=== PATIENT | female | born 1965 | race Caucasian/White ===

== ENCOUNTER 2017-07-24 11:09 | Inpatient (IN) | payer MEDICAID ==
[2017-07-24 12:10] LABS: ADD MAN DIFF? NO
[2017-07-24 12:22] LABS: WHITE BLOOD COUNT 6.8 10^3/ul (4.8-10.8)
[2017-07-24 12:22] LABS: BASOPHILS % 0.3 % (0.0-2.0); EOSINOPHILS # 0.3 10^3/ul (0.0-0.5); EOSINOPHILS % 3.8 % (0.0-7.0); HEMATOCRIT 33.9 % (37.0-47.0); HEMOGLOBIN 11.2 g/dl (12.0-16.0); LYMPHOCYTES # 2.1 10^3/ul (0.8-2.9); LYMPHOCYTES % 30.3 % (15.0-51.0); MEAN CORPUSCULAR HEMOGLOBIN 27.7 pg (29.0-33.0); MEAN CORPUSCULAR VOLUME 83.7 fl (82.0-101.0); MEAN PLATELET VOLUME 10.1 fl (7.4-10.4); MONOCYTE # 0.4 10^3/ul (0.3-0.9); MONOCYTES % 5.1 % (0.0-11.0); NEUTROPHIL # 4.1 10^3/ul (1.6-7.5); NEUTROPHILS % 60.2 % (39.0-77.0); PLATELET COUNT 301 10^3/UL (140-415); RED BLOOD COUNT 4.05 10^6/ul (4.20-5.40); RED CELL DISTRIBUTION WIDTH 12.7 % (11.5-14.5)
[2017-07-24 12:37] LABS: ALANINE AMINOTRANSFERASE 42 IU/L (13-69); ALBUMIN 3.7 g/dl (3.3-4.9); ALBUMIN/GLOBULIN RATIO 1.27; ALKALINE PHOSPHATASE 64 IU/L (42-121); ANION GAP 16 (8-16); ASPARTATE AMINO TRANSFERASE 22 IU/L (15-46); BILIRUBIN,INDIRECT 0.3 mg/dl (0-1.1); BILIRUBIN,TOTAL 0.3 mg/dl (0.2-1.3); BLOOD UREA NITROGEN 4 mg/dl (7-20); CALCIUM 9.1 mg/dl (8.4-10.2); CARBON DIOXIDE 23 mmol/L (21-31); CHLORIDE 103 mmol/L (97-110); CREATININE 0.38 mg/dl (0.44-1.00); GLUCOSE 111 mg/dl (70-220); POTASSIUM 4.1 mmol/L (3.5-5.1); SODIUM 138 mmol/L (135-144); TOTAL PROTEIN 6.6 g/dl (6.1-8.1)
[2017-07-24 12:38] LABS: LACTIC ACID 1.2 mmol/L (0.5-2.0)
[2017-07-24 12:41] LABS: INR 0.93; PROTIME 12.6 Sec (11.9-14.9)
[2017-07-24 12:42] LABS: PARTIAL THROMBOPLASTIN TIME 29.4 Sec (25.0-35.0)
[2017-07-24 12:48] LABS: TROPONIN-I < 0.012 ng/ml (0.00-0.12)
[2017-07-24 15:36] LABS: LACTIC ACID 0.7 mmol/L (0.5-2.0)
[2017-07-24] MEDS ORDERED: ONDANSETRON 4 MG TAB PO (17:30)
[2017-07-24] MEDS ORDERED: NAPROXEN 500 MG TAB PO (17:30)
[2017-07-24] MEDS ORDERED: ACETAMINOPHEN 325 MG TAB PO ×2 (17:30→18:30)
[2017-07-24] MEDS ORDERED: NITROGLYCERIN (SL) 0.4 MG TAB SL (17:30)
[2017-07-24] MEDS ORDERED: LACTULOSE 30ML CUP PO (17:30)
[2017-07-24] MEDS: OSELTAMIVIR 75 MG CAP PO (17:58)
[2017-07-24] MEDS: ALBUTEROL/IPRATROPIUM (NEB) 3 ML AMP HHN ×2 (18:04→20:00)
[2017-07-24] MEDS: ASPIRIN 81 MG TAB PO (18:05)
[2017-07-24] MEDS: OXYBUTYNIN 5 MG TAB PO (18:06)
[2017-07-24] MEDS: SOD CHLORIDE 0.45% 1,000 ML IV (18:08)
[2017-07-24] MEDS ORDERED: POLYETHYLENE GLYCOL 17 GM PACKET PO (18:30)
[2017-07-24] MEDS ORDERED: MAGNESIUM HYDROXIDE 30ML CUP PO (18:30)
[2017-07-24] MEDS ORDERED: NACL 0.9% 3 ML SYG IV (18:30)
[2017-07-24] MEDS ORDERED: DOCUSATE SODIUM 100 MG CAP PO (18:30)
[2017-07-24] MEDS: ENOXAPARIN 40 MG/0.4 ML SYG SC (18:30)
[2017-07-24] MEDS ORDERED: BISACODYL 10 MG SUPP PR (18:30)
[2017-07-24] MEDS ORDERED: ONDANSETRON 4 MG INJ IV (18:30)
[2017-07-24] MEDS ORDERED: ACETAMINOPHEN 650 MG SUPP PR (18:30)
[2017-07-24 19:07] LABS: LACTIC ACID 0.9 mmol/L (0.5-2.0)
[2017-07-24] MEDS: [UNRECOGNIZED DRUG - REMARK] XX (19:31)
[2017-07-24] MEDS: BACLOFEN 10 MG TAB PO (20:41)
[2017-07-24] MEDS: CALCIUM/VITAMIN D (500/200) TAB PO (20:42)
[2017-07-24] MEDS: MAGNESIUM OXIDE 400 MG TAB PO (20:42)
[2017-07-24] MEDS: LACTULOSE 30ML CUP PO (20:43)
[2017-07-24] MEDS ORDERED: BACLOFEN 10 MG TAB PO (21:00)
[2017-07-24] MEDS ORDERED: MAGNESIUM OXIDE 400 MG TAB PO (21:00)
[2017-07-24] MEDS ORDERED: CRANBERRY EXTRACT PO (21:00)
[2017-07-24] MEDS: AZITHROMYCIN 500MG/NS (PMX) 250 ML IVPB (21:04)
[2017-07-24] MEDS: PIPER-TAZO 3.375 GM IV (PMX) 50 ML IVPB (22:12)
[2017-07-25] MEDS: [UNRECOGNIZED DRUG - REMARK] XX ×2 (02:30→08:37)
[2017-07-25] MEDS: PIPER-TAZO 3.375 GM IV (PMX) 50 ML IVPB ×3 (05:33→21:34)
[2017-07-25] MEDS: PANTOPRAZOLE 40 MG INJ IV (05:33)
[2017-07-25] MEDS: ALBUTEROL/IPRATROPIUM (NEB) 3 ML AMP HHN ×4 (07:30→19:19)
[2017-07-25] MEDS: MIDODRINE 5 MG TAB PO (08:25)
[2017-07-25] MEDS: OSELTAMIVIR 75 MG CAP PO ×2 (08:26→20:22)
[2017-07-25] MEDS: OXYBUTYNIN 5 MG TAB PO (08:26)
[2017-07-25] MEDS: ASCORBIC ACID 250 MG TAB PO (08:26)
[2017-07-25] MEDS: BACLOFEN 10 MG TAB PO ×3 (08:26→20:22)
[2017-07-25] MEDS: MULTIVITAMINS THERAPEUTIC TAB PO (08:26)
[2017-07-25] MEDS: ASPIRIN (EC) 81 MG TAB PO (08:27)
[2017-07-25] MEDS: LACTULOSE 30ML CUP PO ×3 (08:27→21:42)
[2017-07-25] MEDS: MAGNESIUM OXIDE 400 MG TAB PO ×3 (08:27→20:22)
[2017-07-25] MEDS: CALCIUM/VITAMIN D (500/200) TAB PO ×2 (08:27→20:34)
[2017-07-25] MEDS: ENOXAPARIN 40 MG/0.4 ML SYG SC (08:37)
[2017-07-25] MEDS ORDERED: ASCORBIC ACID 250 MG TAB PO (09:00)
[2017-07-25] MEDS ORDERED: MULTIVITAMINS THERAPEUTIC TAB PO (09:00)
[2017-07-25] MEDS ORDERED: MIDODRINE 10 MG PO (09:00)
[2017-07-25] MEDS: BISACODYL (EC) 5 MG TAB PO (12:08)
[2017-07-25] MEDS: PAROXETINE 10 MG TAB PO (12:09)
[2017-07-25] MEDS: SOD CHLORIDE 0.45% 1,000 ML IV (13:32)
[2017-07-25] MEDS: AZITHROMYCIN 500MG/NS (PMX) 250 ML IVPB (20:06)
[2017-07-25] MEDS: POLYETHYLENE GLYCOL 17 GM PACKET PO (20:22)
[2017-07-26] MEDS: PANTOPRAZOLE 40 MG INJ IV (05:52)
[2017-07-26] MEDS: PIPER-TAZO 3.375 GM IV (PMX) 50 ML IVPB ×3 (05:52→21:00)
[2017-07-26] MEDS: ALBUTEROL/IPRATROPIUM (NEB) 3 ML AMP HHN ×4 (08:00→23:37)
[2017-07-26] MEDS: CALCIUM/VITAMIN D (500/200) TAB PO ×2 (09:00→21:01)
[2017-07-26] MEDS: LACTULOSE 30ML CUP PO ×2 (09:00→21:01)
[2017-07-26] MEDS: ASCORBIC ACID 250 MG TAB PO (10:13)
[2017-07-26] MEDS: OXYBUTYNIN 5 MG TAB PO (10:13)
[2017-07-26] MEDS: ASPIRIN (EC) 81 MG TAB PO (10:13)
[2017-07-26] MEDS: MAGNESIUM OXIDE 400 MG TAB PO ×3 (10:13→21:00)
[2017-07-26] MEDS: MIDODRINE 5 MG TAB PO (10:13)
[2017-07-26] MEDS: BACLOFEN 10 MG TAB PO ×3 (10:13→21:00)
[2017-07-26] MEDS: OSELTAMIVIR 75 MG CAP PO ×2 (10:14→21:00)
[2017-07-26] MEDS: PAROXETINE 10 MG TAB PO (10:14)
[2017-07-26] MEDS: MULTIVITAMINS THERAPEUTIC TAB PO (10:14)
[2017-07-26] MEDS: ENOXAPARIN 40 MG/0.4 ML SYG SC (10:18)
[2017-07-26] MEDS: SOD CHLORIDE 0.45% 1,000 ML IV (10:19)
[2017-07-26] MEDS: AZITHROMYCIN 500MG/NS (PMX) 250 ML IVPB (21:00)
[2017-07-27 05:15] LABS: ADD MAN DIFF? NO
[2017-07-27] MEDS: PANTOPRAZOLE 40 MG INJ IV (05:16)
[2017-07-27] MEDS: PIPER-TAZO 3.375 GM IV (PMX) 50 ML IVPB ×2 (05:16→13:56)
[2017-07-27] MEDS: SOD CHLORIDE 0.45% 1,000 ML IV ×2 (05:20→09:44)
[2017-07-27 05:23] LABS: WHITE BLOOD COUNT 6.3 10^3/ul (4.8-10.8)
[2017-07-27 05:23] LABS: BASOPHILS % 0.5 % (0.0-2.0); EOSINOPHILS # 0.7 10^3/ul (0.0-0.5); EOSINOPHILS % 10.3 % (0.0-7.0); HEMATOCRIT 32.3 % (37.0-47.0); HEMOGLOBIN 10.5 g/dl (12.0-16.0); LYMPHOCYTES # 1.9 10^3/ul (0.8-2.9); LYMPHOCYTES % 29.3 % (15.0-51.0); MEAN CORPUSCULAR HEMOGLOBIN 27.4 pg (29.0-33.0); MEAN CORPUSCULAR HGB CONC 32.5 g/dl (32.0-37.0); MEAN CORPUSCULAR VOLUME 84.3 fl (82.0-101.0); MEAN PLATELET VOLUME 9.4 fl (7.4-10.4); MONOCYTE # 0.6 10^3/ul (0.3-0.9); NEUTROPHIL # 3.2 10^3/ul (1.6-7.5); NEUTROPHILS % 50.6 % (39.0-77.0); PLATELET COUNT 377 10^3/UL (140-415); RED BLOOD COUNT 3.83 10^6/ul (4.20-5.40); RED CELL DISTRIBUTION WIDTH 13.2 % (11.5-14.5)
[2017-07-27 06:05] LABS: PHOSPHORUS 3.6 mg/dl (2.5-4.9)
[2017-07-27 06:07] LABS: ANION GAP 17 (8-16); BLOOD UREA NITROGEN 8 mg/dl (7-20); CALCIUM 8.9 mg/dl (8.4-10.2); CARBON DIOXIDE 24 mmol/L (21-31); CHLORIDE 106 mmol/L (97-110); CREATININE 0.48 mg/dl (0.44-1.00); GLUCOSE 86 mg/dl (70-220); SODIUM 143 mmol/L (135-144)
[2017-07-27] MEDS: CALCIUM/VITAMIN D (500/200) TAB PO ×2 (09:00→20:47)
[2017-07-27] MEDS: MAGNESIUM OXIDE 400 MG TAB PO ×3 (09:00→20:47)
[2017-07-27] MEDS: LACTULOSE 30ML CUP PO ×2 (09:00→20:42)
[2017-07-27] MEDS: BACLOFEN 10 MG TAB PO ×3 (09:17→20:47)
[2017-07-27] MEDS: ASPIRIN (EC) 81 MG TAB PO (09:17)
[2017-07-27] MEDS: MULTIVITAMINS THERAPEUTIC TAB PO (09:17)
[2017-07-27] MEDS: OSELTAMIVIR 75 MG CAP PO ×2 (09:17→20:47)
[2017-07-27] MEDS: PAROXETINE 10 MG TAB PO (09:17)
[2017-07-27] MEDS: OXYBUTYNIN 5 MG TAB PO (09:17)
[2017-07-27] MEDS: ASCORBIC ACID 250 MG TAB PO (09:17)
[2017-07-27] MEDS: MIDODRINE 5 MG TAB PO (09:18)
[2017-07-27] MEDS: ENOXAPARIN 40 MG/0.4 ML SYG SC (09:25)
[2017-07-27] MEDS: ALBUTEROL/IPRATROPIUM (NEB) 3 ML AMP HHN ×3 (09:36→20:59)
[2017-07-28] MEDS: PANTOPRAZOLE 40 MG INJ IV (05:29)
[2017-07-28] MEDS: ALBUTEROL/IPRATROPIUM (NEB) 3 ML AMP HHN ×3 (08:05→20:32)
[2017-07-28] MEDS: CALCIUM/VITAMIN D (500/200) TAB PO ×2 (09:00→21:00)
[2017-07-28] MEDS: MULTIVITAMINS THERAPEUTIC TAB PO (09:00)
[2017-07-28] MEDS: LACTULOSE 30ML CUP PO ×2 (09:00→21:15)
[2017-07-28] MEDS: BACLOFEN 10 MG TAB PO ×4 (09:09→21:15)
[2017-07-28] MEDS: ASCORBIC ACID 250 MG TAB PO ×2 (09:09→09:29)
[2017-07-28] MEDS: MIDODRINE 5 MG TAB PO ×2 (09:09→09:29)
[2017-07-28] MEDS: OSELTAMIVIR 75 MG CAP PO ×3 (09:10→21:16)
[2017-07-28] MEDS: ASPIRIN (EC) 81 MG TAB PO ×2 (09:10→09:29)
[2017-07-28] MEDS: PAROXETINE 10 MG TAB PO ×2 (09:10→09:29)
[2017-07-28] MEDS: OXYBUTYNIN 5 MG TAB PO ×2 (09:10→09:29)
[2017-07-28] MEDS: MAGNESIUM OXIDE 400 MG TAB PO ×4 (09:10→21:16)
[2017-07-28] MEDS: ENOXAPARIN 40 MG/0.4 ML SYG SC (09:11)
[2017-07-28] MEDS: SOD CHLORIDE 0.45% 1,000 ML IV (09:17)
[2017-07-29] MEDS: SOD CHLORIDE 0.45% 1,000 ML IV (05:48)
[2017-07-29] MEDS: PANTOPRAZOLE 40 MG INJ IV (05:48)
[2017-07-29] MEDS: ALBUTEROL/IPRATROPIUM (NEB) 3 ML AMP HHN (08:00)
[2017-07-29] MEDS: LACTULOSE 30ML CUP PO (09:00)
[2017-07-29] MEDS: OXYBUTYNIN 5 MG TAB PO (09:00)
[2017-07-29] MEDS: CALCIUM/VITAMIN D (500/200) TAB PO (09:00)
[2017-07-29] MEDS: MULTIVITAMINS THERAPEUTIC TAB PO (09:00)
[2017-07-29] MEDS: MAGNESIUM OXIDE 400 MG TAB PO (09:00)
[2017-07-29] MEDS: ENOXAPARIN 40 MG/0.4 ML SYG SC (09:22)
[2017-07-29] MEDS: ASCORBIC ACID 250 MG TAB PO (09:24)
[2017-07-29] MEDS: PAROXETINE 10 MG TAB PO (09:24)
[2017-07-29] MEDS: MIDODRINE 5 MG TAB PO (09:24)
[2017-07-29] MEDS: ASPIRIN (EC) 81 MG TAB PO (09:25)
[2017-07-29] MEDS: BACLOFEN 10 MG TAB PO (09:25)
== END 2017-07-29 12:30 | DRG 193 ==
LOC: E/R 11:09 → PP2 13:51
DX: J09.X1 Influenza due to identified novel influenza A virus with pneumonia (principal); G82.50 Quadriplegia, unspecified; Z99.11 Dependence on respirator [ventilator] status; Z93.0 Tracheostomy status; R06.89 Other abnormalities of breathing; Z93.1 Gastrostomy status; Z93.3 Colostomy status; E78.5 Hyperlipidemia, unspecified; G62.9 Polyneuropathy, unspecified; Z87.820 Personal history of traumatic brain injury; Z79.82 Long term (current) use of aspirin; D64.9 Anemia, unspecified
CPT/HCPCS: 36415; 71010; 71045; 80048; 80053; 83605; 83735; 84100; 84484; 85025; 85610; 85730; 87040; 87400; 93005; 94640; 94664; 99285-25; G0378

== ENCOUNTER 2017-12-24 14:37 | Inpatient (IN) | payer MEDICAID ==
[2017-12-24 16:13] LABS: ADD MAN DIFF? NO
[2017-12-24] MEDS: SODIUM CHLORIDE 0.9% 1L BAG IV* (16:14)
[2017-12-24 16:17] LABS: BASOPHILS % 0.3 % (0.0-2.0); EOSINOPHILS % 0.3 % (0.0-7.0); HEMATOCRIT 36.1 % (37.0-47.0); HEMOGLOBIN 11.9 g/dl (12.0-16.0); LYMPHOCYTES # 1.9 10^3/ul (0.8-2.9); MEAN CORPUSCULAR HEMOGLOBIN 27.5 pg (29.0-33.0); MEAN CORPUSCULAR VOLUME 83.4 fl (82.0-101.0); MEAN PLATELET VOLUME 10.6 fl (7.4-10.4); MONOCYTE # 0.7 10^3/ul (0.3-0.9); MONOCYTES % 5.7 % (0.0-11.0); NEUTROPHIL # 9.3 10^3/ul (1.6-7.5); NEUTROPHILS % 77.4 % (39.0-77.0); PLATELET COUNT 291 10^3/UL (140-415); RED BLOOD COUNT 4.33 10^6/ul (4.20-5.40); RED CELL DISTRIBUTION WIDTH 13.3 % (11.5-14.5)
[2017-12-24 16:34] LABS: LACTIC ACID 1.9 mmol/L (0.5-2.0)
[2017-12-24 16:37] LABS: INR 0.98; PROTIME 13.1 Sec (11.9-14.9)
[2017-12-24 16:38] LABS: ALANINE AMINOTRANSFERASE 42 IU/L (13-69); ALBUMIN 4.1 g/dl (3.3-4.9); ALKALINE PHOSPHATASE 90 IU/L (42-121); ANION GAP 17 (8-16); ASPARTATE AMINO TRANSFERASE 34 IU/L (15-46); BILIRUBIN,INDIRECT 0.5 mg/dl (0-1.1); BILIRUBIN,TOTAL 0.5 mg/dl (0.2-1.3); BLOOD UREA NITROGEN 6 mg/dl (7-20); CALCIUM 9.4 mg/dl (8.4-10.2); CARBON DIOXIDE 24 mmol/L (21-31); CHLORIDE 103 mmol/L (97-110); CREATININE 0.35 mg/dl (0.44-1.00); GLUCOSE 88 mg/dl (70-220); POTASSIUM 3.9 mmol/L (3.5-5.1); SODIUM 140 mmol/L (135-144); TOTAL PROTEIN 7.5 g/dl (6.1-8.1)
[2017-12-24 16:54] LABS: TROPONIN-I < 0.012 ng/ml (0.000-0.120)
[2017-12-24] MEDS: ACETAMINOPHEN 500 MG TAB PO (17:11)
[2017-12-24 17:33] LABS: ADD UMIC YES; UR ASCORBIC ACID NEGATIVE (NEGATIVE); UR BACTERIA FEW /HPF (NONE SEEN); UR BILIRUBIN (Dip) NEGATIVE (NEGATIVE); UR BLOOD (Dip) NEGATIVE (NEGATIVE); UR CLARITY SLIGHTLY CLOUDY (CLEAR); UR COLOR YELLOW (YELLOW); UR GLUCOSE (Dip) NEGATIVE (NEGATIVE); UR KETONES (Dip) NEGATIVE (NEGATIVE); UR LEUKOCYTE ESTERASE (Dip) 1+ Leu/ul (NEGATIVE); UR NITRITE (Dip) POSITIVE (NEGATIVE); UR RBC 0 /HPF (0-5); UR SPECIFIC GRAVITY (Dip) 1.002 (1.003-1.030); UR TOTAL PROTEIN (Dip) NEGATIVE (NEGATIVE); UR UROBILINOGEN (Dip) NEGATIVE (NEGATIVE); UR WBC 1 /HPF (0-5)
[2017-12-24] MEDS: CEFTRIAXONE 1 GM/50 ML (PMX) 50 ML IVPB (18:02)
[2017-12-24] MEDS: SOD CHLORIDE 0.9% 1,000 ML IV ×2 (18:19→22:22)
[2017-12-24] MEDS ORDERED: ACETAMINOPHEN 325 MG TAB PO ×2 (18:30→21:00)
[2017-12-24] MEDS ORDERED: ONDANSETRON 4 MG INJ IV ×2 (18:30→21:00)
[2017-12-24 19:29] LABS: LACTIC ACID 0.9 mmol/L (0.5-2.0)
[2017-12-24] MEDS: ALBUTEROL/IPRATROPIUM (NEB) 3 ML AMP HHN (22:28)
[2017-12-24 23:12] LABS: LACTIC ACID 0.9 mmol/L (0.5-2.0)
[2017-12-25] MEDS: ALBUTEROL/IPRATROPIUM (NEB) 3 ML AMP HHN ×7 (00:55→20:07)
[2017-12-25] MEDS: GUAIFENESIN/DM 5ML CUP PO ×3 (01:41→16:45)
[2017-12-25] MEDS: PANTOPRAZOLE (EC) 40 MG TAB PO (05:28)
[2017-12-25 06:12] LABS: WHITE BLOOD COUNT 13.3 10^3/ul (4.8-10.8)
[2017-12-25 06:12] LABS: HEMATOCRIT 30.5 % (37.0-47.0); MEAN CORPUSCULAR HEMOGLOBIN 27.9 pg (29.0-33.0); MEAN CORPUSCULAR HGB CONC 32.8 g/dl (32.0-37.0); MEAN CORPUSCULAR VOLUME 85.2 fl (82.0-101.0); MEAN PLATELET VOLUME 10.5 fl (7.4-10.4); PLATELET COUNT 234 10^3/UL (140-415); RED BLOOD COUNT 3.58 10^6/ul (4.20-5.40); RED CELL DISTRIBUTION WIDTH 13.2 % (11.5-14.5)
[2017-12-25 06:31] LABS: ANION GAP 15 (8-16); BLOOD UREA NITROGEN 3 mg/dl (7-20); CALCIUM 8.4 mg/dl (8.4-10.2); CARBON DIOXIDE 18 mmol/L (21-31); CHLORIDE 107 mmol/L (97-110); CREATININE 0.31 mg/dl (0.44-1.00); GLUCOSE 109 mg/dl (70-220); POTASSIUM 4.1 mmol/L (3.5-5.1); SODIUM 136 mmol/L (135-144)
[2017-12-25 07:01] LABS: ADD MAN DIFF? YES; POSITIVE DIFF @See below
[2017-12-25 08:51] LABS: ANISOCYTOSIS 1+ (0-0); BAND NEUTROPHILS #M 3.8 10^3/ul (0.0-0.6); BAND NEUTROPHILS % (M) 29 % (0-4); LYMPHOCYTES #M 2.3 10^3/ul (0.8-2.9); LYMPHOCYTES % (M) 18 % (15-51); MICROCYTOSIS 1+ (0-0); MONOCYTE #M 0.5 10^3/ul (0.3-0.9); MONOCYTES % (M) 4 % (0-11); PLATELET ESTIMATE NORMAL; SEGMENTED NEUTROPHILS (M) % 49 % (39-77); SMUDGE%M 3 % (0-0)
[2017-12-25] MEDS: SOD CHLORIDE 0.9% 1,000 ML IV (13:30)
[2017-12-25] MEDS: PAROXETINE 10 MG TAB PO (16:00)
[2017-12-25] MEDS: LACTULOSE 30ML CUP PO (16:00)
[2017-12-25] MEDS ORDERED: NAPROXEN 500 MG TAB PO (16:00)
[2017-12-25] MEDS ORDERED: ACETAMINOPHEN 325 MG TAB PO (16:00)
[2017-12-25] MEDS: BISACODYL 10 MG SUPP PR (16:00)
[2017-12-25] MEDS ORDERED: ONDANSETRON 4 MG TAB PO (16:00)
[2017-12-25] MEDS ORDERED: AZITHROMYCIN 500 MG in SOD CHLORIDE 0.9% 250 ML IVPB (16:00)
[2017-12-25] MEDS: MAGNESIUM HYDROXIDE 30ML CUP PO (16:00)
[2017-12-25] MEDS ORDERED: NITROGLYCERIN (SL) 0.4 MG TAB SL (16:00)
[2017-12-25] MEDS: BISACODYL (EC) 5 MG TAB PO (16:00)
[2017-12-25] MEDS ORDERED: ACETAMINOPHEN 500 MG TAB PO (16:00)
[2017-12-25] MEDS: OXYBUTYNIN 5 MG TAB PO (16:00)
[2017-12-25] MEDS: METHYLPREDNISOLONE 125 MG INJ IV (16:37)
[2017-12-25] MEDS: MULTIVITAMINS THERAPEUTIC TAB PO (16:38)
[2017-12-25] MEDS: ASPIRIN (EC) 81 MG TAB PO (16:38)
[2017-12-25] MEDS: MIDODRINE 5 MG TAB PO (16:39)
[2017-12-25] MEDS: CHOLECALCIFEROL 1,000 UNIT TAB PO (16:39)
[2017-12-25] MEDS: ENOXAPARIN 40 MG/0.4 ML SYG SC (16:43)
[2017-12-25] MEDS: AZITHROMYCIN 500 MG in SOD CHLORIDE 0.9% 250 ML IVPB (17:44)
[2017-12-25] MEDS: ASCORBIC ACID 250 MG TAB PO (18:41)
[2017-12-25] MEDS: CEFTRIAXONE 1 GM/50 ML (PMX) 50 ML IVPB (18:42)
[2017-12-25] MEDS: OCULAR LUBRICANT 3.5 GM OPH OINT BOTH EYES (21:00)
[2017-12-25] MEDS: MAGNESIUM OXIDE 400 MG TAB PO (21:21)
[2017-12-25] MEDS: METHYLPREDNISOLONE 40 MG INJ IV (21:21)
[2017-12-25] MEDS: BACLOFEN 10 MG TAB PO (21:22)
[2017-12-25] MEDS: CALCIUM/VITAMIN D (250/125) TAB PO (21:22)
[2017-12-26] MEDS: ALBUTEROL/IPRATROPIUM (NEB) 3 ML AMP HHN ×6 (00:29→21:00)
[2017-12-26] MEDS: SOD CHLORIDE 0.9% 1,000 ML IV ×3 (01:36→19:37)
[2017-12-26] MEDS: PANTOPRAZOLE (EC) 40 MG TAB PO (05:42)
[2017-12-26] MEDS: METHYLPREDNISOLONE 40 MG INJ IV ×3 (05:43→21:22)
[2017-12-26 06:08] LABS: ADD MAN DIFF? NO
[2017-12-26 06:10] LABS: BASOPHILS % 0.1 % (0.0-2.0); HEMATOCRIT 32.1 % (37.0-47.0); HEMOGLOBIN 10.6 g/dl (12.0-16.0); LYMPHOCYTES # 1.7 10^3/ul (0.8-2.9); LYMPHOCYTES % 19.1 % (15.0-51.0); MEAN CORPUSCULAR HEMOGLOBIN 27.5 pg (29.0-33.0); MEAN CORPUSCULAR VOLUME 83.4 fl (82.0-101.0); MEAN PLATELET VOLUME 10.5 fl (7.4-10.4); MONOCYTE # 0.1 10^3/ul (0.3-0.9); MONOCYTES % 0.9 % (0.0-11.0); NEUTROPHILS % 79.2 % (39.0-77.0); PLATELET COUNT 263 10^3/UL (140-415); RED BLOOD COUNT 3.85 10^6/ul (4.20-5.40); RED CELL DISTRIBUTION WIDTH 13.6 % (11.5-14.5)
[2017-12-26 06:10] LABS: WHITE BLOOD COUNT 8.9 10^3/ul (4.8-10.8)
[2017-12-26 06:44] LABS: BLOOD UREA NITROGEN 5 mg/dl (7-20); CALCIUM 8.7 mg/dl (8.4-10.2); CARBON DIOXIDE 22 mmol/L (21-31); CHLORIDE 112 mmol/L (97-110); CREATININE 0.31 mg/dl (0.44-1.00); GLUCOSE 158 mg/dl (70-220); POTASSIUM 3.5 mmol/L (3.5-5.1)
[2017-12-26 07:07] LABS: ANION GAP 15 (8-16); SODIUM 145 mmol/L (135-144)
[2017-12-26] MEDS: LACTULOSE 30ML CUP PO ×2 (09:00→19:32)
[2017-12-26] MEDS: BISACODYL 10 MG SUPP PR (09:00)
[2017-12-26] MEDS: MAGNESIUM HYDROXIDE 30ML CUP PO (09:00)
[2017-12-26] MEDS: CALCIUM/VITAMIN D (250/125) TAB PO ×2 (09:00→21:20)
[2017-12-26] MEDS: ASCORBIC ACID 250 MG TAB PO (09:09)
[2017-12-26] MEDS: OXYBUTYNIN 5 MG TAB PO (09:09)
[2017-12-26] MEDS: ASPIRIN (EC) 81 MG TAB PO (09:10)
[2017-12-26] MEDS: MULTIVITAMINS THERAPEUTIC TAB PO (09:10)
[2017-12-26] MEDS: PAROXETINE 10 MG TAB PO (09:10)
[2017-12-26] MEDS: BACLOFEN 10 MG TAB PO ×3 (09:10→21:20)
[2017-12-26] MEDS: MAGNESIUM OXIDE 400 MG TAB PO ×3 (09:10→21:20)
[2017-12-26] MEDS: CHOLECALCIFEROL 1,000 UNIT TAB PO (09:11)
[2017-12-26] MEDS: MIDODRINE 5 MG TAB PO (09:13)
[2017-12-26] MEDS: BISACODYL (EC) 5 MG TAB PO (09:15)
[2017-12-26] MEDS: ENOXAPARIN 40 MG/0.4 ML SYG SC (11:01)
[2017-12-26] MEDS: CEFTRIAXONE 1 GM/50 ML (PMX) 50 ML IVPB (17:00)
[2017-12-26] MEDS: POLYETHYLENE GLYCOL 17 GM PACKET GTB (17:00)
[2017-12-26] MEDS: AZITHROMYCIN 500 MG in SOD CHLORIDE 0.9% 250 ML IVPB (18:42)
[2017-12-26] MEDS: OCULAR LUBRICANT 3.5 GM OPH OINT BOTH EYES (21:00)
[2017-12-27] MEDS: ALBUTEROL/IPRATROPIUM (NEB) 3 ML AMP HHN ×6 (00:23→20:20)
[2017-12-27] MEDS: SOD CHLORIDE 0.9% 1,000 ML IV (05:38)
[2017-12-27] MEDS: PANTOPRAZOLE (EC) 40 MG TAB PO (05:38)
[2017-12-27] MEDS: METHYLPREDNISOLONE 40 MG INJ IV ×2 (05:38→20:50)
[2017-12-27 06:06] LABS: ADD MAN DIFF? NO
[2017-12-27 06:15] LABS: WHITE BLOOD COUNT 10.7 10^3/ul (4.8-10.8)
[2017-12-27 06:15] LABS: BASOPHILS % 0.1 % (0.0-2.0); HEMATOCRIT 30.7 % (37.0-47.0); HEMOGLOBIN 10.3 g/dl (12.0-16.0); LYMPHOCYTES # 1.6 10^3/ul (0.8-2.9); LYMPHOCYTES % 14.5 % (15.0-51.0); MEAN CORPUSCULAR HEMOGLOBIN 27.9 pg (29.0-33.0); MEAN CORPUSCULAR HGB CONC 33.6 g/dl (32.0-37.0); MEAN CORPUSCULAR VOLUME 83.2 fl (82.0-101.0); MEAN PLATELET VOLUME 10.4 fl (7.4-10.4); MONOCYTE # 0.4 10^3/ul (0.3-0.9); MONOCYTES % 4.1 % (0.0-11.0); NEUTROPHIL # 8.6 10^3/ul (1.6-7.5); NEUTROPHILS % 80.3 % (39.0-77.0); PLATELET COUNT 310 10^3/UL (140-415); RED BLOOD COUNT 3.69 10^6/ul (4.20-5.40); RED CELL DISTRIBUTION WIDTH 13.4 % (11.5-14.5)
[2017-12-27 06:54] LABS: ALANINE AMINOTRANSFERASE 150 IU/L (13-69); ALBUMIN 3.3 g/dl (3.3-4.9); ALKALINE PHOSPHATASE 157 IU/L (42-121); ANION GAP 12 (8-16); ASPARTATE AMINO TRANSFERASE 138 IU/L (15-46); BILIRUBIN,INDIRECT 0.2 mg/dl (0-1.1); BILIRUBIN,TOTAL 0.2 mg/dl (0.2-1.3); BLOOD UREA NITROGEN 9 mg/dl (7-20); CALCIUM 8.7 mg/dl (8.4-10.2); CARBON DIOXIDE 26 mmol/L (21-31); CHLORIDE 112 mmol/L (97-110); CREATININE 0.36 mg/dl (0.44-1.00); GLUCOSE 142 mg/dl (70-220); POTASSIUM 3.2 mmol/L (3.5-5.1); SODIUM 147 mmol/L (135-144); TOTAL PROTEIN 6.6 g/dl (6.1-8.1)
[2017-12-27] MEDS: MAGNESIUM HYDROXIDE 30ML CUP PO (09:00)
[2017-12-27] MEDS: LACTULOSE 30ML CUP PO (09:00)
[2017-12-27] MEDS: OXYBUTYNIN 5 MG TAB PO (09:47)
[2017-12-27] MEDS: PAROXETINE 10 MG TAB PO (09:47)
[2017-12-27] MEDS: MULTIVITAMINS THERAPEUTIC TAB PO (09:51)
[2017-12-27] MEDS: CALCIUM/VITAMIN D (250/125) TAB PO ×2 (09:51→20:50)
[2017-12-27] MEDS: BISACODYL 10 MG SUPP PR (09:51)
[2017-12-27] MEDS: ASPIRIN (EC) 81 MG TAB PO (09:51)
[2017-12-27] MEDS: CHOLECALCIFEROL 1,000 UNIT TAB PO (09:51)
[2017-12-27] MEDS: BACLOFEN 10 MG TAB PO ×3 (09:51→20:49)
[2017-12-27] MEDS: ASCORBIC ACID 250 MG TAB PO (09:54)
[2017-12-27] MEDS: MIDODRINE 5 MG TAB PO (09:54)
[2017-12-27] MEDS: BISACODYL (EC) 5 MG TAB PO (09:55)
[2017-12-27] MEDS: MAGNESIUM OXIDE 400 MG TAB PO ×3 (09:59→20:50)
[2017-12-27] MEDS: ENOXAPARIN 40 MG/0.4 ML SYG SC (10:07)
[2017-12-27] MEDS: POTASSIUM CHLORIDE (SR) 20 MEQ TAB PO (13:11)
[2017-12-27] MEDS: AZITHROMYCIN 500 MG in SOD CHLORIDE 0.9% 250 ML IVPB (17:02)
[2017-12-27] MEDS: CEFTRIAXONE 1 GM/50 ML (PMX) 50 ML IVPB (18:25)
[2017-12-27] MEDS: OCULAR LUBRICANT 3.5 GM OPH OINT BOTH EYES (21:00)
[2017-12-28] MEDS: ALBUTEROL/IPRATROPIUM (NEB) 3 ML AMP HHN ×5 (00:50→17:00)
[2017-12-28] MEDS: PANTOPRAZOLE (EC) 40 MG TAB PO (06:12)
[2017-12-28] MEDS ORDERED: VITAMIN A & D 5 GM OINT PACKET TOP (06:20)
[2017-12-28 07:52] LABS: ADD MAN DIFF? NO
[2017-12-28 07:58] LABS: BASOPHILS % 0.2 % (0.0-2.0); HEMATOCRIT 31.6 % (37.0-47.0); HEMOGLOBIN 10.4 g/dl (12.0-16.0); LYMPHOCYTES # 1.5 10^3/ul (0.8-2.9); LYMPHOCYTES % 12.6 % (15.0-51.0); MEAN CORPUSCULAR HEMOGLOBIN 27.7 pg (29.0-33.0); MEAN CORPUSCULAR HGB CONC 32.9 g/dl (32.0-37.0); MEAN CORPUSCULAR VOLUME 84.3 fl (82.0-101.0); MEAN PLATELET VOLUME 10.4 fl (7.4-10.4); MONOCYTE # 0.8 10^3/ul (0.3-0.9); MONOCYTES % 6.2 % (0.0-11.0); NEUTROPHIL # 9.4 10^3/ul (1.6-7.5); NEUTROPHILS % 77.8 % (39.0-77.0); PLATELET COUNT 350 10^3/UL (140-415); RED BLOOD COUNT 3.75 10^6/ul (4.20-5.40); RED CELL DISTRIBUTION WIDTH 13.7 % (11.5-14.5)
[2017-12-28 07:58] LABS: WHITE BLOOD COUNT 12.1 10^3/ul (4.8-10.8)
[2017-12-28 08:23] LABS: ANION GAP 10 (8-16); BLOOD UREA NITROGEN 10 mg/dl (7-20); CALCIUM 8.8 mg/dl (8.4-10.2); CARBON DIOXIDE 28 mmol/L (21-31); CHLORIDE 109 mmol/L (97-110); CREATININE 0.34 mg/dl (0.44-1.00); GLUCOSE 123 mg/dl (70-220); POTASSIUM 4.3 mmol/L (3.5-5.1); SODIUM 143 mmol/L (135-144)
[2017-12-28 08:29] LABS: PHOSPHORUS 2.2 mg/dl (2.5-4.9)
[2017-12-28 08:29] LABS: MAGNESIUM 2.4 mg/dl (1.7-2.5)
[2017-12-28] MEDS: BISACODYL 10 MG SUPP PR (09:00)
[2017-12-28] MEDS: LACTULOSE 30ML CUP PO (09:00)
[2017-12-28] MEDS: MAGNESIUM HYDROXIDE 30ML CUP PO (09:00)
[2017-12-28] MEDS: POTASSIUM CHLORIDE (SR) 20 MEQ TAB PO (09:52)
[2017-12-28] MEDS: MULTIVITAMINS THERAPEUTIC TAB PO (09:52)
[2017-12-28] MEDS: BISACODYL (EC) 5 MG TAB PO (09:52)
[2017-12-28] MEDS: predniSONE 20 MG TAB PO (09:52)
[2017-12-28] MEDS: PAROXETINE 10 MG TAB PO (09:53)
[2017-12-28] MEDS: BACLOFEN 10 MG TAB PO ×2 (09:53→13:29)
[2017-12-28] MEDS: ASPIRIN (EC) 81 MG TAB PO (09:53)
[2017-12-28] MEDS: CHOLECALCIFEROL 1,000 UNIT TAB PO (09:53)
[2017-12-28] MEDS: MAGNESIUM OXIDE 400 MG TAB PO ×2 (09:53→13:32)
[2017-12-28] MEDS: OXYBUTYNIN 5 MG TAB PO (09:53)
[2017-12-28] MEDS: ASCORBIC ACID 250 MG TAB PO (09:54)
[2017-12-28] MEDS: CALCIUM/VITAMIN D (250/125) TAB PO (10:01)
[2017-12-28] MEDS: MIDODRINE 5 MG TAB PO (10:02)
[2017-12-28] MEDS: ENOXAPARIN 40 MG/0.4 ML SYG SC (10:03)
[2017-12-28] MEDS: CEFTRIAXONE 1 GM/50 ML (PMX) 50 ML IVPB (17:16)
[2017-12-28] MEDS: AZITHROMYCIN 500 MG in SOD CHLORIDE 0.9% 250 ML IVPB (17:17)
== END 2017-12-28 19:15 | DRG 871 ==
LOC: E/R 14:37 → MS2 18:20
DX: A41.9 Sepsis, unspecified organism (principal); J18.9 Pneumonia, unspecified organism; G82.50 Quadriplegia, unspecified; N39.0 Urinary tract infection, site not specified; Z93.3 Colostomy status; M41.9 Scoliosis, unspecified; Z93.0 Tracheostomy status; Z93.1 Gastrostomy status; J40 Bronchitis, not specified as acute or chronic; B96.5 Pseudomonas (aeruginosa) (mallei) (pseudomallei) as the cause of diseases classified elsewhere; B96.20 Unspecified Escherichia coli [E. coli] as the cause of diseases classified elsewhere; Z79.82 Long term (current) use of aspirin; Z87.820 Personal history of traumatic brain injury
CPT/HCPCS: 36415; 71045; 80048; 80053; 81001; 83605; 83735; 84100; 84484; 85025; 85610; 85730; 87040; 87081; 87086; 87400; 93005; 94640; 94664; 96365; 96366; 99291-25